=== PATIENT | female | born 1950 | race Caucasian/White ===

== ENCOUNTER → 2017-01-19 | Outpatient (CLI) | payer BC, MEDICARE ==
[~2017-01-19] MED LIST: ASCO-296 PO; CALC-603 PO; ELDERBERRY PO; FISH1CAP29 PO; MULT-543 PO
== END ==
LOC: WC.BC 08:09
DX: Z12.31 Encounter for screening mammogram for malignant neoplasm of breast (principal)
CPT/HCPCS: 77063; G0202